=== PATIENT | male | born 2000 | race African-American/Black ===

== ENCOUNTER 2024-10-20 13:29 | Emergency (ER) | payer MEDICAID ==
[~2024-10-20] VITALS: Ht 175.3 cm; Wt 107.0 kg
[2024-10-20 13:32] VITALS: O2SAT 98
[2024-10-20 13:49] VITALS: BP 140/87; PULSE 66; RESP 18; TEMP 98.8; O2SAT 97
[2024-10-20] MEDS ORDERED: ACETAMINOPHEN 325MG TABLET PO ONE (15:45)
== END 2024-10-20 19:57 | disposition left against medical advice (07) ==
LOC: ER 13:29
DX: R07.9 Chest pain, unspecified (principal); Z88.0 Allergy status to penicillin; Z88.6 Allergy status to analgesic agent
CPT/HCPCS: 71045; 93005; 99283

== ENCOUNTER 2025-03-21 09:45 | Emergency (ER) | payer MEDICAID ==
[~2025-03-21] VITALS: Ht 175.3 cm; Wt 104.0 kg
[2025-03-21 10:26] VITALS: O2SAT 98
[2025-03-21] MEDS ORDERED: DEXAMETHASONE 10 MG/ML VIAL PO ONE (11:15)
[2025-03-21] MEDS ORDERED: ACETAMINOPHEN 160MG/5ML UDC PO ONE (11:15)
[2025-03-21] MEDS: ACETAMINOPHEN 650MG/20.3ML UDC PO NR (11:54)
[2025-03-21] MEDS: DEXAMETHASONE 10 MG/ML VIAL PO NR (11:55)
[2025-03-21] MEDS ORDERED: ACET-2708 MT (14:09)
[2025-03-21] MEDS ORDERED: ACET-2084 MT (14:13)
[2025-03-21 14:25] LABS: MONOTEST NEGATIVE (NEGATIVE)
[2025-03-21 14:28] VITALS: BP 136/75; PULSE 64; RESP 16; TEMP 37; O2SAT 98
== END 2025-03-21 14:40 | disposition home or self-care (01) ==
LOC: ER 09:45
DX: J02.9 Acute pharyngitis, unspecified (principal); J03.80 Acute tonsillitis due to other specified organisms
CPT/HCPCS: 99283; 87430; 86308; 87070; J1100